=== PATIENT | male | born 1970 | race Hispanic/Latino ===

== ENCOUNTER → 2021-06-26 | Day surgery (SDC) | payer BC ==
[~2021-06-26] MED LIST: ATORVASTATIN CA20 MG PO; LIDOCAINE HCL 2% LOCAL INJ 5 ML SDV VIAL INJ ONE; MIDAZOLAM HCL 2 MG/2 ML VIAL ONE; MULTI-VITAMIN1 EACH PO; PROPOFOL IV EMULSION 10 MG/ML 20 ML VIAL ONE
[2021-06-26 16:30] VITALS: BP 128/84
[2021-06-26 17:09] LABS: % IRON SATURATION 10 % (15-50); IRON 38 ug/dL (65-175); TOTAL IRON BINDING CAPACITY 381 ug/dL (261-478); TRANSFERRIN 272 mg/dL (174-364)
== END | disposition home or self-care (01) ==
LOC: OR 11:15
PROVIDERS: ATTEND Internal Medicine Gastroenterology
DX: Z12.11 Encounter for screening for malignant neoplasm of colon (principal); D12.5 Benign neoplasm of sigmoid colon; K31.7 Polyp of stomach and duodenum; K29.50 Unspecified chronic gastritis without bleeding; K21.00 Gastro-esophageal reflux disease with esophagitis, without bleeding; K44.9 Diaphragmatic hernia without obstruction or gangrene; K64.8 Other hemorrhoids; D64.89 Other specified anemias; E78.00 Pure hypercholesterolemia, unspecified; Z01.810 Encounter for preprocedural cardiovascular examination; Z01.812 Encounter for preprocedural laboratory examination; Z20.822 Contact with and (suspected) exposure to COVID-19; Z79.899 Other long term (current) drug therapy; Z68.36 Body mass index [BMI] 36.0-36.9, adult
CPT/HCPCS: 36415; 43239; 45384; 82607; 82746; 83540; 84466; 93005; J2001; J2250; J2704; U0002; 45380; 86255

== ENCOUNTER 2025-02-23 13:57 | Emergency (ER) | payer BC ==
[~2025-02-23] VITALS: Ht 180.3 cm; Wt 127.0 kg
[~2025-02-23 13:57] MED LIST changes: -LIDOCAINE HCL 2% LOCAL INJ 5 ML SDV VIAL INJ ONE; -MIDAZOLAM HCL 2 MG/2 ML VIAL ONE; -PROPOFOL IV EMULSION 10 MG/ML 20 ML VIAL ONE
[2025-02-23 14:45] VITALS: TEMP 98.4
[2025-02-23 15:25] LABS: BASOPHILS % 0.5 % (0.0-1.0); EOSINOPHILS % 2.0 % (0.0-6.0); LYMPHOCYTES % 31.0 % (18.0-39.1); MONOCYTES % 9.6 % (4.4-11.3); NEUTROPHILS % 56.5 % (38.7-80.0); RED CELL DISTRIBUTION WIDTH 13.1 % (11.7-14.4)
[2025-02-23 15:47] LABS: EST GLOMERULAR FILTRATION RATE 75.0 ML/MIN (>=60)
[2025-02-23] MEDS: TETANUS/DIPHTHERIA TOX ADULT 0.5 ML SYR IM ONE (16:02)
[2025-02-23] MEDS ORDERED: AMOX TR-K CLV1 EAC2 PO (17:18)
[2025-02-23] MEDS ORDERED: ULTRAM 50MG50 MG PO (17:18)
[2025-02-23 18:19] VITALS: PULSE 78; RESP 19
[2025-02-23 18:22] VITALS: BP 133/78; RESP 19; O2SAT 99
[2025-03-01] MEDS ORDERED: LOSARTAN-HCTZ1 EACH (10:34)
[2025-03-01] MEDS ORDERED: DULOXETINE HCL20 MG (10:35)
== END 2025-02-23 18:30 | disposition home or self-care (01) ==
LOC: ER 14:02
DX: L03.115 Cellulitis of right lower limb (principal); S92.341A Displaced fracture of fourth metatarsal bone, right foot, initial encounter for closed fracture; M79.671 Pain in right foot; I10 Essential (primary) hypertension; E11.9 Type 2 diabetes mellitus without complications
CPT/HCPCS: 29515; 36415; 73590; 73630; 80048; 85025; 90471; 90714; 99284; J2543

== ENCOUNTER → 2025-03-03 | Day surgery (SDC) | payer BC ==
[2025-03-01 12:37] LABS: BASOPHILS % 0.6 % (0.0-1.0); EOSINOPHILS % 1.6 % (0.0-6.0); LYMPHOCYTES % 22.2 % (18.0-39.1); MONOCYTES % 10.3 % (4.4-11.3); NEUTROPHILS % 64.9 % (38.7-80.0); RED CELL DISTRIBUTION WIDTH 12.7 % (11.7-14.4)
[2025-03-01 13:02] LABS: EST GLOMERULAR FILTRATION RATE 75.0 ML/MIN (>=60)
[~2025-03-03] MED LIST changes: +ACETAMINOPHEN 1000 MG/100 ML 100 ML IV ONE; +AMOX TR-K CLV1 EAC2 PO; +DEXAMETHASONE SOD PHOS INJ 4 MG/ML SDV ONE; +DULOXETINE HCL20 MG; +FENTANYL CITRATE/PF 100MCG/2 ML INJ ONE; +LIDOCAINE HCL 2% LOCAL INJ 5 ML SDV VIAL INJ ONE; +LOSARTAN-HCTZ1 EACH; +MIDAZOLAM HCL 2 MG/2 ML VIAL ONE; +ONDANSETRON HCL INJ 2MG/ML 2ML 2 MG/ML VIAL ONE; +PROPOFOL IV EMULSION 10 MG/ML 20 ML VIAL ONE; +SEVOFLURANE INHAL SOLN 250 ML PEN BTL ONE; +ULTRAM 50MG50 MG PO
[2025-03-03] MEDS: LACTATED RINGER'S 1,000 ML ONE (10:35)
[2025-03-03] MEDS: CEFAZOLIN SODIUM 2 GM ONE (10:36)
[2025-03-03 14:00] VITALS: BP 117/86; PULSE 72; RESP 18; O2SAT 96
== END | disposition home or self-care (01) ==
LOC: OR 09:18
PROVIDERS: ATTEND Podiatrist Foot Surgery
DX: S92.341A Displaced fracture of fourth metatarsal bone, right foot, initial encounter for closed fracture (principal); I10 Essential (primary) hypertension; E78.5 Hyperlipidemia, unspecified; G47.33 Obstructive sleep apnea (adult) (pediatric); E66.9 Obesity, unspecified; X58.XXXA Exposure to other specified factors, initial encounter; Z01.810 Encounter for preprocedural cardiovascular examination; Z01.812 Encounter for preprocedural laboratory examination
CPT/HCPCS: 28485; 36415; 71046; 76000; 80048; 85025; 93005; C1713; J0131; J1100; J2003; J2250; J2405; J2704; J3010; J7121